=== PATIENT | female | born 1930 | race Caucasian/White ===

== ENCOUNTER 2020-06-28 11:59 | Emergency (ER) | payer MEDICARE, OTHER ==
[2020-06-28 12:35] LABS: #Basophils 0.1 thou/uL (0.0-0.2); #Eosinphils 0.2 thou/uL (0.0-0.7); #Monocytes 0.6 thou/uL (0.11-0.59); #Neutrophils 4.4 thou/uL (1.40-6.50); %Basophils 1.6 % (0.0-1.0); %Eosinophils 2.3 % (0.0-10.0); %Lymphocytes 26.9 % (21.0-51.0); %Monocytes 8.1 % (0.0-10.0); %Neutrophils 61.1 % (42.0-75.0); Hemoglobin 13.6 g/dL (12.0-16.0); Mean Corpuscular HGB CONC 30.7 g/dL (32.0-36.0); Mean Corpuscular Hemoglobin 28.9 pg (27.0-31.0); Mean Corpuscular Volume 93.9 fL (78.0-98.0); Mean Platelet Volume 8.7 fL (7.4-10.4); Platelet Count 304 thou/uL (130-400); RBC Distribution Width 13.4 % (11.5-14.5); Red Blood Cell (RBC) Count 4.71 mill/uL (4.20-5.40); White Blood Cell (WBC) Count 7.3 thou/uL (4.8-10.8)
[2020-06-28 12:49] LABS: ALT (SGPT) 14 U/L (8-55); AST (SGOT) 19 U/L (5-34); Albumin 3.9 g/dL (3.4-4.8); Alkaline Phosphatase 88 U/L (40-110); Anion Gap 14 mmol/L (10-20); BUN (Urea Nitrogen) 23 mg/dL (9.8-20.1); Bilirubin, Total 0.4 mg/dL (0.2-1.2); Calc. Creatinine Clearance 0 mL/min (70-130); Calcium 9.5 mg/dL (7.8-10.44); Carbon Dioxide 27 mmol/L (23-31); Chloride 107 mmol/L (98-107); Estimated GFR-MDRD 36; Globulin 3.2 g/dL (2.4-3.5); Glucose 121 mg/dL (83-110); Potassium 3.9 mmol/L (3.5-5.1); Protein, Total 7.1 g/dL (6.0-8.3); Sodium 144 mmol/L (136-145)
== END 2020-06-28 13:18 | disposition home or self-care (01) ==
LOC: NAV ERS 11:59
DX: R19.7 Diarrhea, unspecified (principal); N28.9 Disorder of kidney and ureter, unspecified; F03.90 Unspecified dementia, unspecified severity, without behavioral disturbance, psychotic disturbance, mood disturbance, and anxiety; I10 Essential (primary) hypertension; Z79.899 Other long term (current) drug therapy
CPT/HCPCS: 80053; 82274; 85025; 99284

== ENCOUNTER 2020-08-10 10:30 | Emergency (ER) | payer MEDICARE, OTHER ==
[2020-08-10] MEDS ORDERED: traMADol HCl 50 MG TAB ONE (11:43)
[2020-08-10] MEDS ORDERED: Sodium Chloride 0.9% 1,000 ML ONE (11:43)
[2020-08-10 11:52] LABS: #Basophils 0.1 thou/uL (0.0-0.2); #Eosinphils 0.1 thou/uL (0.0-0.7); #Lymphocytes 2.1 thou/uL (1.20-3.40); #Monocytes 0.7 thou/uL (0.11-0.59); #Neutrophils 6.9 thou/uL (1.40-6.50); %Basophils 1.1 % (0.0-1.0); %Eosinophils 1.2 % (0.0-10.0); %Lymphocytes 21.1 % (21.0-51.0); %Monocytes 6.6 % (0.0-10.0); %Neutrophils 69.9 % (42.0-75.0); Hemoglobin 14.1 g/dL (12.0-16.0); Mean Corpuscular HGB CONC 32.6 g/dL (32.0-36.0); Mean Corpuscular Hemoglobin 30.3 pg (27.0-31.0); Mean Corpuscular Volume 92.8 fL (78.0-98.0); Mean Platelet Volume 7.6 fL (7.4-10.4); Platelet Count 372 thou/uL (130-400); RBC Distribution Width 13.1 % (11.5-14.5); Red Blood Cell (RBC) Count 4.66 mill/uL (4.20-5.40); White Blood Cell (WBC) Count 9.9 thou/uL (4.8-10.8)
[2020-08-10 12:13] LABS: ALT (SGPT) 17 U/L (8-55); AST (SGOT) 22 U/L (5-34); Albumin 3.7 g/dL (3.4-4.8); Alkaline Phosphatase 82 U/L (40-110); Anion Gap 16 mmol/L (10-20); BUN (Urea Nitrogen) 24 mg/dL (9.8-20.1); Bilirubin, Total 0.4 mg/dL (0.2-1.2); Calc. Creatinine Clearance 0 mL/min (70-130); Calcium 9.5 mg/dL (7.8-10.44); Carbon Dioxide 28 mmol/L (23-31); Chloride 104 mmol/L (98-107); Estimated GFR-MDRD 36; Globulin 3.5 g/dL (2.4-3.5); Glucose 97 mg/dL (83-110); Lipase 24 U/L (8-78); Potassium 4.1 mmol/L (3.5-5.1); Protein, Total 7.2 g/dL (6.0-8.3); Sodium 144 mmol/L (136-145)
--- NOTE | 2020-08-10 12:57 | CT ---
CT Abdomen Pelvis WO Con: 08/10/2020 11:34 AM HISTORY: Dementia and bleeding hemorrhoids COMPARISON: None. TECHNIQUE: Multiple contiguous axial images were obtained and a CT of the abdomen and pelvis without IV contrast . Coronal and sagittal reformats were performed. FINDINGS: This examination is limited for the evaluation of solid organs and vascular structures due to the lac k of intravenous contrast. Lower Chest: Right lower lobe calcified granuloma. Abdomen: Liver: within normal limits. Bile Ducts: Normal caliber. Gallbladder: Absent Pancreas: within normal limits. Spleen: Scattered calcified granulomas. Adrenals: within normal limits. Kidneys: Bilateral renal hypodensities measuring up to 4.7 cm in size likely represent cysts. Pelvis: Reproductive Organs: Status post hysterectomy. Ureters: within normal limits. Bladder: within normal limits. Bowel: Normal caliber. Scattered diverticula in the colon. There is a moderate amount of stool retent ion in the colon with a large amount stool in the rectal vault. There is thickening of the perianal/perirectal soft tissues. Mesenteric Lymph Nodes: No enlarged mesenteric lymph nodes. Peritoneum: No ascites or free air, no fluid collection. Vessels: Atherosclerotic calcifications in the aorta Retroperitoneum: within normal limits. Abdominal Wall: within normal limits. Bones: Degenerative changes in the spine. IMPRESSION: 1. Perianal/perirectal soft tissue thickening. Correlate with physical exam to exclude a focal mass. 2. Moderate stool retention in the colon 3. Bilateral renal cysts 4. Diverticulosis
[2020-08-10] MEDS ORDERED: Clindamycin 150 MG CAP ONE (13:10)
== END 2020-08-10 13:32 | disposition home or self-care (01) ==
LOC: NAV ERS 10:30
DX: K59.00 Constipation, unspecified (principal); K64.4 Residual hemorrhoidal skin tags; K61.0 Anal abscess; I10 Essential (primary) hypertension; F03.90 Unspecified dementia, unspecified severity, without behavioral disturbance, psychotic disturbance, mood disturbance, and anxiety; Z79.899 Other long term (current) drug therapy
CPT/HCPCS: 74176; 80053; 82274; 83690; 85025; J7050

== ENCOUNTER 2021-02-07 14:00 | Emergency (ER) | payer MEDICARE, OTHER | END 2021-02-07 16:45 | disposition home or self-care (01) | LOC: NAV ERS 14:00 | DX: M79.605 Pain in left leg (principal); M25.552 Pain in left hip; F03.90 Unspecified dementia, unspecified severity, without behavioral disturbance, psychotic disturbance, mood disturbance, and anxiety; I10 Essential (primary) hypertension; Z79.899 Other long term (current) drug therapy | CPT/HCPCS: 72170; 72192 ==